=== PATIENT | male | born 1935 ===

== ENCOUNTER 2021-01-27 19:08 | Inpatient (IN) | payer MEDICARE ==
[~2021-01-27] VITALS: Ht 175.3 cm; Wt 100.7 kg
[2021-01-27 20:33] LABS: BASOPHILS # (AUTO) 0.1 (0.0-0.1); BASOPHILS % 0.5 % (0.0-1.0); EOSINOPHILS # (AUTO) 0.1 (0.0-0.4); EOSINOPHILS % 1.4 % (0.0-6.0); HEMATOCRIT 45.6 % (38.2-49.6); HEMOGLOBIN 14.6 g/dL (14.0-18.0); LYMPHOCYTES % 19.4 % (18.0-39.1); MEAN CORPUSCULAR VOLUME 93.8 fL (81-99); MONOCYTES # (AUTO) 1.1 (0.2-0.8); MONOCYTES % 10.4 % (4.4-11.3); NEUTROPHILS # (AUTO) 6.9 (2.1-6.9); NEUTROPHILS % 67.6 % (38.7-80.0); PLATELET COUNT 202 x10e3/uL (140-360); RED BLOOD COUNT 4.86 x10e6/uL (4.3-5.7); RED CELL DISTRIBUTION WIDTH 15.3 % (11.7-14.4)
[2021-01-27 20:48] LABS: ALBUMIN 3.1 g/dL (3.5-5.0); ALBUMIN/GLOBULIN RATIO 1.1 (0.8-2.0); ANION GAP 19.1 mmol/L (8-16); CALCIUM 8.8 mg/dL (8.4-10.2); CREATININE, SERUM 1.75 mg/dL (0.72-1.25); POTASSIUM 4.1 mmol/L (3.5-5.1)
[2021-01-27] MEDS ORDERED: ASPIRIN 81 MG CHEW TAB PO ONE (21:45)
[2021-01-27 23:15] LABS: CLARITY,URINE CLEAR (CLEAR); COLOR,URINE YELLOW (YELLOW); KETONES,URINE NEGATIVE (NEGATIVE); LEUKOCYTE ESTERASE ,URINE TRACE (NEGATIVE); NITRITE,URINE NEGATIVE (NEGATIVE); PROTEIN,URINE DIPSTICK 1+ (NEGATIVE); URINE UROBILINOGEN 0.2 mg/dL (0.2 - 1)
[2021-01-27] MEDS ORDERED: FUROSEMIDE INJ 10 MG/ML 4 ML VIAL IV ONE (23:15)
[2021-01-27 23:24] LABS: BACTERIA,URINE MODERATE /HPF; EPITHELIAL CELLS,URINE FEW /LPF; RBC,URINE 0-5 /HPF (0-5)
[2021-01-28] VITALS (7 sets, daily range): BP systolic 121–138; BP diastolic 65–92
[2021-01-28] MEDS ORDERED: ALBUTEROL0.63 MG/3 NEB (02:24)
[2021-01-28] MEDS ORDERED: ASPIRIN81 MG PO (02:25)
[2021-01-28] MEDS ORDERED: METOPROLOL TART50 MG PO (02:26)
[2021-01-28] MEDS ORDERED: DILTIAZEM HCL60 MG PO (02:27)
[2021-01-28] MEDS ORDERED: HUMALOG100 UNIT/3 (02:27)
[2021-01-28] MEDS ORDERED: LACTULOSE20 GM/30 M PO (02:28)
[2021-01-28] MEDS ORDERED: ELIQUIS2.5 MG PO (02:28)
[2021-01-28] MEDS ORDERED: BENADRYL25 M1 PO (02:29)
[2021-01-28] MEDS ORDERED: LANTUS 3ML100 UNITS/ SC (02:29)
[2021-01-28] MEDS ORDERED: FUROSEMIDE INJ 10 MG/ML 4 ML VIAL ONE (02:41)
[2021-01-28] MEDS: METOPROLOL TARTRATE 50 MG TAB PO SCH ×2 (05:49→18:04)
[2021-01-28] MEDS ORDERED: CEFTRIAXONE 2 GM/DEXT 100 ML 2 GM/100 ML ML IV SCH (07:15)
[2021-01-28] MEDS ORDERED: DOCUSATE SODIUM 100 MG CAP PO PRN (07:15)
[2021-01-28] MEDS ORDERED: LACTULOSE SYRUP 20 GM/30 ML UDC PO PRN (07:15)
[2021-01-28] MEDS ORDERED: DIPHENHYDRAMINE HCL 25 MG CAP PO PRN (07:15)
[2021-01-28] MEDS ORDERED: ONDANSETRON HCL INJ 2MG/ML 2ML 2 MG/ML VIAL IV PRN (07:15)
[2021-01-28] MEDS ORDERED: ACETAMINOPHEN 325 MG TAB PO PRN (07:15)
[2021-01-28] MEDS ORDERED: FAMOTIDINE 20 MG TAB PO SCH (08:00)
[2021-01-28 08:38] LABS: BASOPHILS % 0.4 % (0.0-1.0); EOSINOPHILS # (AUTO) 0.2 (0.0-0.4); EOSINOPHILS % 1.5 % (0.0-6.0); HEMATOCRIT 50.6 % (38.2-49.6); HEMOGLOBIN 16.1 g/dL (14.0-18.0); LYMPHOCYTES # (AUTO) 2.5 (1.0-3.2); LYMPHOCYTES % 23.3 % (18.0-39.1); MEAN CORPUSCULAR HEMOGLOBIN 29.9 pg (28-32); MEAN CORPUSCULAR HGB CONC 31.8 g/dL (31-35); MEAN CORPUSCULAR VOLUME 93.9 fL (81-99); MONOCYTES # (AUTO) 0.9 (0.2-0.8); MONOCYTES % 8.5 % (4.4-11.3); NEUTROPHILS # (AUTO) 6.9 (2.1-6.9); NEUTROPHILS % 65.7 % (38.7-80.0); PLATELET COUNT 202 x10e3/uL (140-360); RED BLOOD COUNT 5.39 x10e6/uL (4.3-5.7); RED CELL DISTRIBUTION WIDTH 15.5 % (11.7-14.4)
[2021-01-28 08:56] LABS: CHOL/HDL RATIO 4.4 (3.9-4.7)
[2021-01-28] MEDS ORDERED: ASPIRIN 81 MG CHEW TAB PO SCH (09:00)
[2021-01-28 09:07] LABS: ALBUMIN 3.5 g/dL (3.5-5.0); ALBUMIN/GLOBULIN RATIO 1.1 (0.8-2.0); ANION GAP 19.7 mmol/L (8-16); CREATININE, SERUM 1.58 mg/dL (0.72-1.25); POTASSIUM 3.7 mmol/L (3.5-5.1)
[2021-01-28] MEDS: CEFTRIAXONE 1 GM in SODIUM CHLORIDE 0.9% 50ML 50 ML IV SCH (09:24)
[2021-01-28] MEDS: ASPIRIN 81 MG CHEW TAB PO SCH (09:24)
[2021-01-28] MEDS: APIXAB 2.5 MG TABLET PO SCH ×2 (09:24→18:03)
[2021-01-28 09:36] LABS: CREATINE KINASE MB 3.1 ng/mL (0-5.0)
[2021-01-28] MEDS: INSULIN GLARGINE 100 UNITS/ML VIAL SQ SCH (10:09)
[2021-01-28] MEDS: DILTIAZEM HCL 60 MG TAB PO SCH ×2 (13:53→18:04)
[2021-01-29] VITALS (7 sets, daily range): BP systolic 120–154; BP diastolic 74–99
[2021-01-29] MEDS: DILTIAZEM HCL 60 MG TAB PO SCH ×4 (01:18→19:08)
[2021-01-29] MEDS ORDERED: FUROSEMIDE INJ 10 MG/ML 2 ML VIAL IV SCH ×2 (08:31→09:00)
[2021-01-29 08:40] LABS: BASOPHILS # (AUTO) 0.1 (0.0-0.1); BASOPHILS % 0.4 % (0.0-1.0); EOSINOPHILS # (AUTO) 0.1 (0.0-0.4); EOSINOPHILS % 0.7 % (0.0-6.0); HEMATOCRIT 48.8 % (38.2-49.6); HEMOGLOBIN 15.5 g/dL (14.0-18.0); LYMPHOCYTES # (AUTO) 1.8 (1.0-3.2); LYMPHOCYTES % 15.4 % (18.0-39.1); MEAN CORPUSCULAR HEMOGLOBIN 30.3 pg (28-32); MEAN CORPUSCULAR HGB CONC 31.8 g/dL (31-35); MEAN CORPUSCULAR VOLUME 95.3 fL (81-99); MONOCYTES # (AUTO) 1.1 (0.2-0.8); MONOCYTES % 9.6 % (4.4-11.3); NEUTROPHILS # (AUTO) 8.5 (2.1-6.9); NEUTROPHILS % 73.4 % (38.7-80.0); PLATELET COUNT 218 x10e3/uL (140-360); RED BLOOD COUNT 5.12 x10e6/uL (4.3-5.7); RED CELL DISTRIBUTION WIDTH 15.5 % (11.7-14.4)
[2021-01-29] MEDS: METOPROLOL TARTRATE 50 MG TAB PO SCH ×2 (08:48→19:08)
[2021-01-29] MEDS: ASPIRIN 81 MG CHEW TAB PO SCH (08:48)
[2021-01-29] MEDS: APIXAB 2.5 MG TABLET PO SCH ×2 (08:48→19:08)
[2021-01-29] MEDS: FAMOTIDINE 20 MG TAB PO SCH (08:48)
[2021-01-29] MEDS: CEFTRIAXONE 1 GM in SODIUM CHLORIDE 0.9% 50ML 50 ML IV SCH (08:48)
[2021-01-29] MEDS: INSULIN GLARGINE 100 UNITS/ML VIAL SQ SCH (09:00)
[2021-01-29 09:53] LABS: ALBUMIN 3.3 g/dL (3.5-5.0); ALBUMIN/GLOBULIN RATIO 1.1 (0.8-2.0); ANION GAP 17.7 mmol/L (8-16); CALCIUM 8.7 mg/dL (8.4-10.2); CREATININE, SERUM 1.56 mg/dL (0.72-1.25); POTASSIUM 3.7 mmol/L (3.5-5.1)
[2021-01-29 10:10] LABS: MAGNESIUM 2.2 MG/DL (1.3-2.1); PHOSPHORUS 4.1 MG/DL (2.3-4.7)
[2021-01-29] MEDS: FUROSEMIDE INJ 10 MG/ML 2 ML VIAL IV SCH ×3 (15:00→20:24)
[2021-01-29] MEDS: ATORVASTATIN 20 MG TAB PO SCH (20:24)
[2021-01-30] VITALS (24 sets, daily range): BP systolic 103–154; BP diastolic 60–104
[2021-01-30] MEDS: FAMOTIDINE 20 MG TAB PO SCH (07:30)
[2021-01-30] MEDS ORDERED: ASPIRIN 81 MG CHEW TAB PO ONE (08:45)
[2021-01-30] MEDS: FUROSEMIDE INJ 10 MG/ML 2 ML VIAL IV SCH (08:57)
[2021-01-30] MEDS: ASPIRIN 81 MG CHEW TAB PO SCH (09:00)
[2021-01-30] MEDS: DILTIAZEM HCL 60 MG TAB PO SCH ×2 (09:00→16:11)
[2021-01-30] MEDS: METOPROLOL TARTRATE 50 MG TAB PO SCH ×2 (09:00→16:11)
[2021-01-30] MEDS: INSULIN GLARGINE 100 UNITS/ML VIAL SQ SCH (09:00)
[2021-01-30] MEDS: APIXAB 2.5 MG TABLET PO SCH (09:00)
[2021-01-30] MEDS: CEFTRIAXONE 1 GM in SODIUM CHLORIDE 0.9% 50ML 50 ML IV SCH (09:12)
[2021-01-30 09:13] LABS: ABG HCO3 31 mmol/L (22-26); ABG PCO2 53 mmHg (35-45); ABG PH 7.38 (7.35-7.45); ABG PO2 67 mmHg (80-105); ABG TCO2 33
[2021-01-30 10:06] LABS: BASOPHILS # (AUTO) 0.1 (0.0-0.1); BASOPHILS % 0.4 % (0.0-1.0); EOSINOPHILS % 0.2 % (0.0-6.0); HEMATOCRIT 46.3 % (38.2-49.6); LYMPHOCYTES # (AUTO) 1.4 (1.0-3.2); LYMPHOCYTES % 10.8 % (18.0-39.1); MEAN CORPUSCULAR HEMOGLOBIN 29.8 pg (28-32); MEAN CORPUSCULAR HGB CONC 32.4 g/dL (31-35); MONOCYTES # (AUTO) 1.2 (0.2-0.8); MONOCYTES % 9.4 % (4.4-11.3); NEUTROPHILS # (AUTO) 10.1 (2.1-6.9); PLATELET COUNT 177 x10e3/uL (140-360); RED BLOOD COUNT 5.03 x10e6/uL (4.3-5.7); RED CELL DISTRIBUTION WIDTH 15.4 % (11.7-14.4)
[2021-01-30] MEDS: FUROSEMIDE INJ 100 MG in SODIUM CHLORIDE 0.9% 100 ML 90 ML IV SCH ×2 (11:41→19:44)
[2021-01-30 16:04] LABS: ANION GAP 14.2 mmol/L (8-16); CALCIUM 8.5 mg/dL (8.4-10.2); CREATININE, SERUM 1.31 mg/dL (0.72-1.25); POTASSIUM 3.2 mmol/L (3.5-5.1)
[2021-01-30] MEDS ORDERED: METOPROLOL TARTRATE INJ 1 MG/ML VIAL IV PRN (16:15)
[2021-01-30 16:22] LABS: CREATINE KINASE MB 1.7 ng/mL (0-5.0)
[2021-01-30] MEDS: ENOXAPARIN SODIUM INJ 100 MG/ML SYR SC SCH (21:35)
[2021-01-30] MEDS: ATORVASTATIN 20 MG TAB PO SCH (21:36)
[2021-01-31] VITALS (26 sets, daily range): BP systolic 90–133; BP diastolic 59–91
[2021-01-31] MEDS: FUROSEMIDE INJ 100 MG in SODIUM CHLORIDE 0.9% 100 ML 90 ML IV SCH (06:14)
[2021-01-31] MEDS: FAMOTIDINE 20 MG TAB PO SCH (08:18)
[2021-01-31] MEDS: CEFTRIAXONE 1 GM in SODIUM CHLORIDE 0.9% 50ML 50 ML IV SCH (08:41)
[2021-01-31] MEDS: ASPIRIN 81 MG CHEW TAB PO SCH (08:41)
[2021-01-31] MEDS: DILTIAZEM HCL 60 MG TAB PO SCH ×2 (08:42→17:58)
[2021-01-31] MEDS: METOPROLOL TARTRATE 50 MG TAB PO SCH ×2 (08:42→17:59)
[2021-01-31] MEDS: ENOXAPARIN SODIUM INJ 100 MG/ML SYR SC SCH ×2 (08:42→19:07)
[2021-01-31 08:49] LABS: BASOPHILS % 0.2 % (0.0-1.0); EOSINOPHILS # (AUTO) 0.1 (0.0-0.4); EOSINOPHILS % 0.5 % (0.0-6.0); HEMATOCRIT 46.9 % (38.2-49.6); HEMOGLOBIN 14.9 g/dL (14.0-18.0); LYMPHOCYTES # (AUTO) 1.6 (1.0-3.2); LYMPHOCYTES % 12.6 % (18.0-39.1); MEAN CORPUSCULAR HEMOGLOBIN 29.7 pg (28-32); MEAN CORPUSCULAR HGB CONC 31.8 g/dL (31-35); MEAN CORPUSCULAR VOLUME 93.4 fL (81-99); MONOCYTES # (AUTO) 1.2 (0.2-0.8); MONOCYTES % 9.5 % (4.4-11.3); NEUTROPHILS # (AUTO) 9.9 (2.1-6.9); NEUTROPHILS % 76.6 % (38.7-80.0); PLATELET COUNT 196 x10e3/uL (140-360); RED BLOOD COUNT 5.02 x10e6/uL (4.3-5.7); RED CELL DISTRIBUTION WIDTH 15.7 % (11.7-14.4)
[2021-01-31] MEDS: INSULIN GLARGINE 100 UNITS/ML VIAL SQ SCH (08:56)
[2021-01-31 09:25] LABS: ANION GAP 13.2 mmol/L (8-16); CALCIUM 8.5 mg/dL (8.4-10.2); CREATININE, SERUM 1.36 mg/dL (0.72-1.25); POTASSIUM 3.2 mmol/L (3.5-5.1)
[2021-01-31] MEDS: POTASSIUM CHLORIDE 20 MEQ TAB CR PO PRN (10:38)
[2021-01-31] MEDS: IPRATROPIUM BROMIDE 0.02% 2.5 ML NEB NEB SCH ×2 (13:00→19:20)
[2021-01-31] MEDS ORDERED: POTASSIUM CHLORIDE 20 MEQ TAB CR PO ONE (14:03)
[2021-01-31] MEDS ORDERED: SODIUM CHLORIDE 0.9% 100 ML ONE (14:10)
[2021-01-31] MEDS ORDERED: IOPAMIDOL 370 MG/ML 200 ML INFUS..BTL INJ ONE (14:10)
[2021-01-31 20:25] LABS: INR 1.25; PROTHROMBIN TIME 16.4 seconds (11.9-14.5)
[2021-01-31 20:26] LABS: PARTIAL THROMBOPLASTIN TIME 45.3 seconds (23.8-35.5)
[2021-01-31] MEDS: ATORVASTATIN 20 MG TAB PO SCH (20:35)
[2021-01-31] MEDS: ZOLPIDEM TARTRATE 5 MG TAB PO PRN (21:39)
[2021-02-01] VITALS (16 sets, daily range): BP systolic 108–140; BP diastolic 70–107
[2021-02-01] MEDS: IPRATROPIUM BROMIDE 0.02% 2.5 ML NEB NEB SCH ×4 (01:10→19:05)
[2021-02-01 05:36] LABS: BASOPHILS % 0.3 % (0.0-1.0); EOSINOPHILS # (AUTO) 0.1 (0.0-0.4); EOSINOPHILS % 0.7 % (0.0-6.0); HEMATOCRIT 44.4 % (38.2-49.6); HEMOGLOBIN 14.1 g/dL (14.0-18.0); LYMPHOCYTES % 17.6 % (18.0-39.1); MEAN CORPUSCULAR HEMOGLOBIN 30.1 pg (28-32); MEAN CORPUSCULAR HGB CONC 31.8 g/dL (31-35); MEAN CORPUSCULAR VOLUME 94.9 fL (81-99); MONOCYTES # (AUTO) 1.1 (0.2-0.8); MONOCYTES % 9.8 % (4.4-11.3); NEUTROPHILS # (AUTO) 8.2 (2.1-6.9); NEUTROPHILS % 70.7 % (38.7-80.0); PLATELET COUNT 178 x10e3/uL (140-360); RED BLOOD COUNT 4.68 x10e6/uL (4.3-5.7)
[2021-02-01 06:06] LABS: ANION GAP 13.6 mmol/L (8-16); CALCIUM 8.5 mg/dL (8.4-10.2); CREATININE, SERUM 1.49 mg/dL (0.72-1.25); POTASSIUM 3.6 mmol/L (3.5-5.1)
[2021-02-01 06:19] LABS: FREE THYROXINE INDEX 1.8749 (1.4-3.8); THYROID STIMULATING HORMONE 0.863 uIU/mL (0.350-4.940)
[2021-02-01] MEDS: FAMOTIDINE 20 MG TAB PO SCH (07:30)
[2021-02-01] MEDS: DILTIAZEM HCL 60 MG TAB PO SCH ×3 (09:00→19:28)
[2021-02-01] MEDS: ENOXAPARIN SODIUM INJ 100 MG/ML SYR SC SCH ×2 (09:00→20:29)
[2021-02-01] MEDS: ASPIRIN 81 MG CHEW TAB PO SCH (09:00)
[2021-02-01] MEDS: METOPROLOL TARTRATE 50 MG TAB PO SCH ×3 (09:00→19:29)
[2021-02-01] MEDS ORDERED: DIGOXIN INJ 0.25 MG/ML 2 ML AMP IV ONE (10:00)
[2021-02-01] MEDS: CEFTRIAXONE 1 GM in SODIUM CHLORIDE 0.9% 50ML 50 ML IV SCH (14:10)
[2021-02-01 15:14] LABS: BODY FLUID APPEARANCE SL.CLOUDY; BODY FLUID COLOR STRAW; BODY FLUID TYPE PLEURAL
[2021-02-01 15:45] LABS: RBC,BODY FLUID 1000 cells/uL; WBC,BODY FLUID 109 cells/uL
[2021-02-01] MEDS: FUROSEMIDE INJ 100 MG in SODIUM CHLORIDE 0.9% 100 ML 90 ML IV SCH (15:46)
[2021-02-01 17:27] LABS: LYMPHOCYTES,BODY FLUID 34 %; MONO/MACROPHG,BODY FLUID 46 %; NEUTROPHILS,BODY FLUID 20 %
[2021-02-01] MEDS: INSULIN GLARGINE 100 UNITS/ML VIAL SQ SCH (19:37)
[2021-02-01] MEDS: ZOLPIDEM TARTRATE 5 MG TAB PO PRN (20:30)
[2021-02-01] MEDS: ATORVASTATIN 20 MG TAB PO SCH (20:30)
[2021-02-02] VITALS (18 sets, daily range): BP systolic 97–157; BP diastolic 64–110
[2021-02-02] MEDS: LORAZEPAM INJ 2 MG/ML VIAL IV PRN (01:09)
[2021-02-02] MEDS: IPRATROPIUM BROMIDE 0.02% 2.5 ML NEB NEB SCH ×4 (01:15→19:15)
[2021-02-02] MEDS: FUROSEMIDE INJ 100 MG in SODIUM CHLORIDE 0.9% 100 ML 90 ML IV SCH ×2 (03:30→16:01)
[2021-02-02] MEDS: FAMOTIDINE 20 MG TAB PO SCH (07:53)
[2021-02-02] MEDS: ENOXAPARIN SODIUM INJ 100 MG/ML SYR SC SCH (08:00)
[2021-02-02] MEDS: METOPROLOL TARTRATE 50 MG TAB PO SCH ×2 (08:00→17:07)
[2021-02-02] MEDS: DILTIAZEM HCL 60 MG TAB PO SCH ×2 (08:00→17:06)
[2021-02-02] MEDS: ASPIRIN 81 MG CHEW TAB PO SCH (08:00)
[2021-02-02] MEDS: CEFTRIAXONE 1 GM in SODIUM CHLORIDE 0.9% 50ML 50 ML IV SCH (08:00)
[2021-02-02] MEDS: BALSAM PERU/CASTOR OIL 60 GM OINT...G. TP SCH (08:01)
[2021-02-02] MEDS: COLLAGENASE 5 GM TUBE TOP SCH (08:01)
[2021-02-02] MEDS: MUPIROCIN 2% OINT 22 GM TUBE TOP SCH (08:01)
[2021-02-02] MEDS: INSULIN GLARGINE 100 UNITS/ML VIAL SQ SCH (08:01)
[2021-02-02] MEDS: ATORVASTATIN 20 MG TAB PO SCH (20:52)
[2021-02-03] VITALS (16 sets, daily range): BP systolic 88–131; BP diastolic 65–93
[2021-02-03] MEDS: IPRATROPIUM BROMIDE 0.02% 2.5 ML NEB NEB SCH ×4 (00:25→19:35)
[2021-02-03] MEDS: LORAZEPAM INJ 2 MG/ML VIAL IV PRN (02:32)
[2021-02-03 05:12] LABS: BASOPHILS % 0.3 % (0.0-1.0); EOSINOPHILS # (AUTO) 0.2 (0.0-0.4); EOSINOPHILS % 2.6 % (0.0-6.0); HEMATOCRIT 42.7 % (38.2-49.6); HEMOGLOBIN 13.5 g/dL (14.0-18.0); LYMPHOCYTES # (AUTO) 1.5 (1.0-3.2); LYMPHOCYTES % 19.9 % (18.0-39.1); MEAN CORPUSCULAR HEMOGLOBIN 29.7 pg (28-32); MEAN CORPUSCULAR HGB CONC 31.6 g/dL (31-35); MEAN CORPUSCULAR VOLUME 94.1 fL (81-99); MONOCYTES # (AUTO) 0.7 (0.2-0.8); MONOCYTES % 9.4 % (4.4-11.3); NEUTROPHILS # (AUTO) 5.1 (2.1-6.9); NEUTROPHILS % 66.9 % (38.7-80.0); PLATELET COUNT 159 x10e3/uL (140-360); RED BLOOD COUNT 4.54 x10e6/uL (4.3-5.7); RED CELL DISTRIBUTION WIDTH 15.5 % (11.7-14.4)
[2021-02-03 06:00] LABS: INR 1.12
[2021-02-03 06:01] LABS: ANION GAP 12.3 mmol/L (8-16); CREATININE, SERUM 1.27 mg/dL (0.72-1.25); POTASSIUM 3.3 mmol/L (3.5-5.1)
[2021-02-03] MEDS: FUROSEMIDE INJ 100 MG in SODIUM CHLORIDE 0.9% 100 ML 90 ML IV SCH ×2 (06:23→17:08)
[2021-02-03] MEDS: CEFTRIAXONE 1 GM in SODIUM CHLORIDE 0.9% 50ML 50 ML IV SCH (08:08)
[2021-02-03] MEDS: FAMOTIDINE 20 MG TAB PO SCH (08:08)
[2021-02-03] MEDS: ASPIRIN 81 MG CHEW TAB PO SCH (08:08)
[2021-02-03] MEDS: INSULIN GLARGINE 100 UNITS/ML VIAL SQ SCH (08:09)
[2021-02-03] MEDS: METOPROLOL TARTRATE 50 MG TAB PO SCH ×2 (08:10→16:26)
[2021-02-03] MEDS: DILTIAZEM HCL 60 MG TAB PO SCH ×2 (08:11→16:26)
[2021-02-03] MEDS: COLLAGENASE 5 GM TUBE TOP SCH (08:12)
[2021-02-03] MEDS: MUPIROCIN 2% OINT 22 GM TUBE TOP SCH (08:12)
[2021-02-03] MEDS: BALSAM PERU/CASTOR OIL 60 GM OINT...G. TP SCH (08:12)
[2021-02-03] MEDS: POTASSIUM CHLORIDE 20 MEQ TAB CR PO PRN (16:26)
[2021-02-03] MEDS: ATORVASTATIN 20 MG TAB PO SCH (21:00)
[2021-02-04] VITALS (25 sets, daily range): BP systolic 89–157; BP diastolic 60–95
[2021-02-04] MEDS: IPRATROPIUM BROMIDE 0.02% 2.5 ML NEB NEB SCH ×4 (02:15→19:00)
[2021-02-04] MEDS: FUROSEMIDE INJ 100 MG in SODIUM CHLORIDE 0.9% 100 ML 90 ML IV SCH ×3 (05:51→22:09)
[2021-02-04 06:58] LABS: ANION GAP 16.7 mmol/L (8-16); CALCIUM 8.2 mg/dL (8.4-10.2); CREATININE, SERUM 1.29 mg/dL (0.72-1.25); POTASSIUM 3.7 mmol/L (3.5-5.1)
[2021-02-04] MEDS ORDERED: LIDOCAINE HCL 2% LOCAL 20 ML VIAL ONE (07:34)
[2021-02-04] MEDS ORDERED: HEPARIN SOD (PORCINE) 1000 UNIT/ML 30ML ONE (07:34)
[2021-02-04] MEDS ORDERED: MIDAZOLAM HCL 2 MG/2 ML VIAL ONE (07:34)
[2021-02-04] MEDS ORDERED: VERAPAMIL HCL 2.5 MG/ML 2 ML VIAL ONE (07:34)
[2021-02-04] MEDS ORDERED: FENTANYL CITRATE/PF 100MCG/2 ML INJ ONE (07:34)
[2021-02-04] MEDS ORDERED: NITROGLYCERIN/D5W 200 MCG/ML 250 ML ONE (07:35)
[2021-02-04] MEDS ORDERED: HEPARIN SOD/SOD CHLORIDE 2,000 ML ONE (07:35)
[2021-02-04] MEDS ORDERED: IOPAMIDOL 370 MG/ML 200 ML INFUS..BTL INJ ONE (07:35)
[2021-02-04] MEDS ORDERED: SODIUM CHLORIDE 0.9% 1000ML 1,000 ML ONE (07:35)
[2021-02-04] MEDS: FAMOTIDINE 20 MG TAB PO SCH (10:15)
[2021-02-04] MEDS: ASPIRIN 81 MG CHEW TAB PO SCH (10:15)
[2021-02-04] MEDS: CEFTRIAXONE 1 GM in SODIUM CHLORIDE 0.9% 50ML 50 ML IV SCH (10:15)
[2021-02-04] MEDS: DILTIAZEM HCL 60 MG TAB PO SCH ×2 (10:15→17:51)
[2021-02-04] MEDS: METOPROLOL TARTRATE 50 MG TAB PO SCH ×2 (10:30→17:51)
[2021-02-04] MEDS: INSULIN GLARGINE 100 UNITS/ML VIAL SQ SCH (10:30)
[2021-02-04] MEDS ORDERED: POTASSIUM CHLORIDE 20 MEQ TAB CR PO ONE (11:00)
[2021-02-04] MEDS: COLLAGENASE 5 GM TUBE TOP SCH (13:00)
[2021-02-04] MEDS: MUPIROCIN 2% OINT 22 GM TUBE TOP SCH (13:00)
[2021-02-04] MEDS: BALSAM PERU/CASTOR OIL 60 GM OINT...G. TP SCH (13:00)
[2021-02-04] MEDS: ATORVASTATIN 20 MG TAB PO SCH (20:30)
[2021-02-05] VITALS (16 sets, daily range): BP systolic 103–133; BP diastolic 69–92
[2021-02-05] MEDS: IPRATROPIUM BROMIDE 0.02% 2.5 ML NEB NEB SCH ×4 (02:30→20:40)
[2021-02-05] MEDS: FAMOTIDINE 20 MG TAB PO SCH (08:06)
[2021-02-05] MEDS: MUPIROCIN 2% OINT 22 GM TUBE TOP SCH (09:00)
[2021-02-05] MEDS: COLLAGENASE 5 GM TUBE TOP SCH (09:00)
[2021-02-05] MEDS: BALSAM PERU/CASTOR OIL 60 GM OINT...G. TP SCH (09:00)
[2021-02-05] MEDS: CEFTRIAXONE 1 GM in SODIUM CHLORIDE 0.9% 50ML 50 ML IV SCH (09:15)
[2021-02-05] MEDS: DILTIAZEM HCL 60 MG TAB PO SCH ×2 (09:15→21:30)
[2021-02-05] MEDS: FUROSEMIDE INJ 10 MG/ML 10 ML VIAL IV SCH ×2 (09:15→21:41)
[2021-02-05] MEDS: ASPIRIN 81 MG CHEW TAB PO SCH (09:15)
[2021-02-05] MEDS: METOPROLOL TARTRATE 50 MG TAB PO SCH ×2 (09:16→21:30)
[2021-02-05] MEDS: INSULIN GLARGINE 100 UNITS/ML VIAL SQ SCH (10:02)
[2021-02-05] MEDS: ATORVASTATIN 20 MG TAB PO SCH (21:30)
[2021-02-06] VITALS (8 sets, daily range): BP systolic 105–119; BP diastolic 68–83
[2021-02-06] MEDS: IPRATROPIUM BROMIDE 0.02% 2.5 ML NEB NEB SCH ×4 (00:18→18:40)
[2021-02-06] MEDS: FAMOTIDINE 20 MG TAB PO SCH (07:30)
[2021-02-06 08:08] LABS: BASOPHILS % 0.3 % (0.0-1.0); EOSINOPHILS # (AUTO) 0.3 (0.0-0.4); EOSINOPHILS % 3.2 % (0.0-6.0); HEMATOCRIT 45.7 % (38.2-49.6); HEMOGLOBIN 14.6 g/dL (14.0-18.0); LYMPHOCYTES # (AUTO) 1.7 (1.0-3.2); LYMPHOCYTES % 18.5 % (18.0-39.1); MEAN CORPUSCULAR HEMOGLOBIN 29.9 pg (28-32); MEAN CORPUSCULAR HGB CONC 31.9 g/dL (31-35); MEAN CORPUSCULAR VOLUME 93.5 fL (81-99); MONOCYTES % 10.5 % (4.4-11.3); NEUTROPHILS # (AUTO) 6.1 (2.1-6.9); NEUTROPHILS % 66.7 % (38.7-80.0); PLATELET COUNT 183 x10e3/uL (140-360); RED BLOOD COUNT 4.89 x10e6/uL (4.3-5.7); RED CELL DISTRIBUTION WIDTH 15.8 % (11.7-14.4)
[2021-02-06 08:27] LABS: ANION GAP 13.5 mmol/L (8-16); CALCIUM 8.4 mg/dL (8.4-10.2); CREATININE, SERUM 1.22 mg/dL (0.72-1.25); POTASSIUM 3.5 mmol/L (3.5-5.1)
[2021-02-06] MEDS: METOPROLOL TARTRATE 50 MG TAB PO SCH ×2 (09:00→19:08)
[2021-02-06] MEDS: CEFTRIAXONE 1 GM in SODIUM CHLORIDE 0.9% 50ML 50 ML IV SCH (09:00)
[2021-02-06] MEDS: FUROSEMIDE INJ 10 MG/ML 10 ML VIAL IV SCH ×2 (09:00→20:31)
[2021-02-06] MEDS: POTASSIUM CHLORIDE 20 MEQ TAB CR PO PRN (09:00)
[2021-02-06] MEDS: ASPIRIN 81 MG CHEW TAB PO SCH (09:00)
[2021-02-06] MEDS ORDERED: DILTIAZEM HCL 30 MG TAB PO SCH (09:30)
[2021-02-06] MEDS ORDERED: SODIUM CHLORIDE 0.9% 250ML 250 ML ONE (09:57)
[2021-02-06] MEDS ORDERED: FUROSEMIDE INJ 10 MG/ML 4 ML VIAL ONE (10:01)
[2021-02-06] MEDS: INSULIN GLARGINE 100 UNITS/ML VIAL SQ SCH (10:40)
[2021-02-06] MEDS: DILTIAZEM HCL 60 MG TAB PO SCH ×2 (11:00→23:30)
[2021-02-06] MEDS: COLLAGENASE 5 GM TUBE TOP SCH (15:00)
[2021-02-06] MEDS: BALSAM PERU/CASTOR OIL 60 GM OINT...G. TP SCH (15:00)
[2021-02-06] MEDS: MUPIROCIN 2% OINT 22 GM TUBE TOP SCH (15:00)
[2021-02-06] MEDS ORDERED: ONDANSETRON HCL 4 MG ORAL DISINTEGRATING TAB PO PRN (16:15)
[2021-02-06] MEDS: ATORVASTATIN 20 MG TAB PO SCH (20:28)
[2021-02-07] VITALS (8 sets, daily range): BP systolic 105–131; BP diastolic 74–92
[2021-02-07] MEDS: IPRATROPIUM BROMIDE 0.02% 2.5 ML NEB NEB SCH ×5 (01:00→23:00)
[2021-02-07] MEDS: CEFTRIAXONE 1 GM in SODIUM CHLORIDE 0.9% 50ML 50 ML IV SCH (08:43)
[2021-02-07] MEDS: ASPIRIN 81 MG CHEW TAB PO SCH (08:43)
[2021-02-07] MEDS: FAMOTIDINE 20 MG TAB PO SCH (08:43)
[2021-02-07] MEDS: METOPROLOL TARTRATE 50 MG TAB PO SCH ×2 (08:44→16:28)
[2021-02-07] MEDS: FUROSEMIDE INJ 10 MG/ML 10 ML VIAL IV SCH ×2 (08:47→21:15)
[2021-02-07] MEDS ORDERED: FUROSEMIDE INJ 10 MG/ML 4 ML VIAL ONE (08:56)
[2021-02-07] MEDS: INSULIN GLARGINE 100 UNITS/ML VIAL SQ SCH (08:59)
[2021-02-07] MEDS: COLLAGENASE 5 GM TUBE TOP SCH (10:37)
[2021-02-07] MEDS: BALSAM PERU/CASTOR OIL 60 GM OINT...G. TP SCH (10:37)
[2021-02-07] MEDS: MUPIROCIN 2% OINT 22 GM TUBE TOP SCH (10:37)
[2021-02-07] MEDS: DILTIAZEM HCL 60 MG TAB PO SCH ×2 (11:57→22:00)
[2021-02-07 12:32] LABS: ABG HCO3 33 mmol/L (22-26); ABG PCO2 42 mmHg (35-45); ABG PO2 92 mmHg (80-105); ABG TCO2 34
[2021-02-07] MEDS ORDERED: LORAZEPAM INJ 2 MG/ML VIAL IV PRN (19:15)
[2021-02-07] MEDS: ATORVASTATIN 20 MG TAB PO SCH (21:15)
[2021-02-08] VITALS (9 sets, daily range): BP systolic 94–120; BP diastolic 56–100
[2021-02-08] MEDS: IPRATROPIUM BROMIDE 0.02% 2.5 ML NEB NEB SCH ×3 (07:00→18:55)
[2021-02-08] MEDS: FUROSEMIDE INJ 10 MG/ML 10 ML VIAL IV SCH ×2 (08:36→21:00)
[2021-02-08] MEDS: FAMOTIDINE 20 MG TAB PO SCH (08:36)
[2021-02-08] MEDS: CEFTRIAXONE 1 GM in SODIUM CHLORIDE 0.9% 50ML 50 ML IV SCH (08:36)
[2021-02-08] MEDS: ASPIRIN 81 MG CHEW TAB PO SCH (08:36)
[2021-02-08] MEDS: INSULIN GLARGINE 100 UNITS/ML VIAL SQ SCH (08:40)
[2021-02-08] MEDS: METOPROLOL TARTRATE 50 MG TAB PO SCH ×2 (08:42→16:32)
[2021-02-08] MEDS ORDERED: FUROSEMIDE INJ 10 MG/ML 4 ML VIAL ONE (08:43)
[2021-02-08] MEDS: BALSAM PERU/CASTOR OIL 60 GM OINT...G. TP SCH (09:35)
[2021-02-08] MEDS: MUPIROCIN 2% OINT 22 GM TUBE TOP SCH (09:35)
[2021-02-08] MEDS: COLLAGENASE 5 GM TUBE TOP SCH (09:35)
[2021-02-08] MEDS: DILTIAZEM HCL 60 MG TAB PO SCH ×2 (11:50→23:00)
[2021-02-08] MEDS: ATORVASTATIN 20 MG TAB PO SCH (22:25)
[2021-02-09] VITALS: BP 109/68
[2021-02-09] MEDS: IPRATROPIUM BROMIDE 0.02% 2.5 ML NEB NEB SCH ×3 (03:20→15:33)
[2021-02-09 04:00] VITALS: BP 113/83
[2021-02-09] MEDS: FAMOTIDINE 20 MG TAB PO SCH (07:30)
[2021-02-09 08:55] VITALS: BP 117/83
[2021-02-09] MEDS: CEFTRIAXONE 1 GM in SODIUM CHLORIDE 0.9% 50ML 50 ML IV SCH (08:59)
[2021-02-09] MEDS: ASPIRIN 81 MG CHEW TAB PO SCH (08:59)
[2021-02-09] MEDS: INSULIN GLARGINE 100 UNITS/ML VIAL SQ SCH (08:59)
[2021-02-09 09:00] VITALS: BP 117/83
[2021-02-09] MEDS: METOPROLOL TARTRATE 50 MG TAB PO SCH ×2 (09:00→17:33)
[2021-02-09] MEDS: FUROSEMIDE INJ 10 MG/ML 10 ML VIAL IV SCH (09:00)
[2021-02-09 10:42] LABS: BASOPHILS # (AUTO) 0.1 (0.0-0.1); BASOPHILS % 0.5 % (0.0-1.0); EOSINOPHILS # (AUTO) 0.3 (0.0-0.4); EOSINOPHILS % 2.9 % (0.0-6.0); HEMATOCRIT 44.7 % (38.2-49.6); HEMOGLOBIN 14.4 g/dL (14.0-18.0); LYMPHOCYTES # (AUTO) 1.8 (1.0-3.2); LYMPHOCYTES % 19.2 % (18.0-39.1); MEAN CORPUSCULAR HEMOGLOBIN 30.1 pg (28-32); MEAN CORPUSCULAR HGB CONC 32.2 g/dL (31-35); MEAN CORPUSCULAR VOLUME 93.5 fL (81-99); MONOCYTES # (AUTO) 0.9 (0.2-0.8); MONOCYTES % 10.1 % (4.4-11.3); NEUTROPHILS # (AUTO) 6.1 (2.1-6.9); NEUTROPHILS % 66.6 % (38.7-80.0); PLATELET COUNT 179 x10e3/uL (140-360); RED BLOOD COUNT 4.78 x10e6/uL (4.3-5.7); RED CELL DISTRIBUTION WIDTH 15.9 % (11.7-14.4)
[2021-02-09 11:07] LABS: ANION GAP 12.8 mmol/L (8-16); CALCIUM 8.4 mg/dL (8.4-10.2); CREATININE, SERUM 1.38 mg/dL (0.72-1.25); POTASSIUM 3.8 mmol/L (3.5-5.1)
[2021-02-09] MEDS: DILTIAZEM HCL 60 MG TAB PO SCH (11:55)
[2021-02-09 12:04] VITALS: BP 104/86
[2021-02-09 15:44] VITALS: BP 100/76
[2021-02-09] MEDS: COLLAGENASE 5 GM TUBE TOP SCH (17:00)
[2021-02-09] MEDS: BALSAM PERU/CASTOR OIL 60 GM OINT...G. TP SCH (17:00)
[2021-02-09] MEDS ORDERED: LORAZEPAM INJ 2 MG/ML VIAL IV PRN (17:00)
== END 2021-02-09 19:12 | DRG 286 ==
LOC: ER 20:40 → ERHOLD 21:56 → MED/SURG2 01-28 02:14 → ICU 01-30 09:37 → MED/SURG 02-05 16:34
PROVIDERS: ADMIT Internal Medicine; ATTEND Internal Medicine
PROC: 02HV33Z Insertion of Infusion Device into Superior Vena Cava, Percutaneous Approach (ICD-10-PCS; 2021-01-30)
PROC: 5A09357 Assistance with Respiratory Ventilation, Less than 24 Consecutive Hours, Continuous Positive Airway Pressure (ICD-10-PCS; 2021-01-30)
PROC: 0W993ZZ Drainage of Right Pleural Cavity, Percutaneous Approach (ICD-10-PCS; 2021-02-01)
PROC: 4A023N7 Measurement of Cardiac Sampling and Pressure, Left Heart, Percutaneous Approach (ICD-10-PCS; principal; 2021-02-04)
PROC: B2111ZZ Fluoroscopy of Multiple Coronary Arteries using Low Osmolar Contrast (ICD-10-PCS; 2021-02-04)
DX: I13.0 Hypertensive heart and chronic kidney disease with heart failure and stage 1 through stage 4 chronic kidney disease, or unspecified chronic kidney disease (principal); I50.23 Acute on chronic systolic (congestive) heart failure; J96.01 Acute respiratory failure with hypoxia; J96.02 Acute respiratory failure with hypercapnia; N18.4 Chronic kidney disease, stage 4 (severe); I69.351 Hemiplegia and hemiparesis following cerebral infarction affecting right dominant side; R55 Syncope and collapse; I48.91 Unspecified atrial fibrillation; Z20.822 Contact with and (suspected) exposure to COVID-19; E11.22 Type 2 diabetes mellitus with diabetic chronic kidney disease; E78.5 Hyperlipidemia, unspecified; I65.23 Occlusion and stenosis of bilateral carotid arteries; I25.10 Atherosclerotic heart disease of native coronary artery without angina pectoris; I25.82 Chronic total occlusion of coronary artery; E66.9 Obesity, unspecified; F03.90 Unspecified dementia, unspecified severity, without behavioral disturbance, psychotic disturbance, mood disturbance, and anxiety; Z68.32 Body mass index [BMI] 32.0-32.9, adult; Z79.82 Long term (current) use of aspirin; Z79.4 Long term (current) use of insulin; Z79.02 Long term (current) use of antithrombotics/antiplatelets
CPT/HCPCS: 32555; 36415; 36569; 36600; 70450; 70498; 71045; 71250; 72170; 74470; 76604; 80048; 80053; 80061; 81001; 82550; 82553; 82805; 82945; 82948; 83036; 83615; 83735; 83880; 84100; 84157; 84436; 84443; 84479; 84484; 85025; 85610; 85730; 87070; 87205; 89051; 93005; 93306; 93454; 93880; 94660; 96372; 97139; 99152; 99251; 99284; C1769; C1887; J0696; J1160; J1644; J1650; J1815; J1940; J2001; J2060; J2250; J3010; J7030; J7050; Q9967; U0002